=== PATIENT | female | born 1980 | race Two or more races ===

== ENCOUNTER 2023-01-30 19:53 | Emergency (ER) | payer MEDICAID ==
[~2023-01-30] VITALS: Ht 162.6 cm; Wt 91.5 kg
[2023-01-30 20:26] LABS: Urine Bacteria NONE SEEN /hpf (None Seen); Urine Blood Negative /uL (Negative); Urine Clarity Clear (Clear); Urine Color Yellow (Yellow); Urine Mucus FEW (None Seen); Urine Protein, UAD Negative (Negative); Urine Urobilinogen Normal (Negative); Urine WBC <1 /hpf (0 - 5); Urine pH 6.5 (5.0-8.0)
[2023-01-30 21:08] LABS: COVID19 ANTIGEN SOFIA FIA NEGATIVE (NEGATIVE); Rapid Influenza A Negative (Negative); Rapid Influenza B Negative (Negative)
[2023-01-30 23:44] VITALS: BP 135/88; PULSE 98; RESP 16; TEMP 99.8; O2SAT 95
[2023-01-31] MEDS ORDERED: PRED20TA2 PO (00:14)
[2023-01-31] MEDS ORDERED: IBUP-1456 PO (00:14)
[2023-01-31] MEDS ORDERED: ALBUAER3 IN (00:14)
== END 2023-01-31 00:24 | disposition home or self-care (01) ==
LOC: ER 19:53
DX: J06.9 Acute upper respiratory infection, unspecified (principal); Z20.822 Contact with and (suspected) exposure to COVID-19
CPT/HCPCS: 36415; 81001; 87426; 87804